=== PATIENT | male | born 1980 ===

== ENCOUNTER 2021-11-07 05:48 | Day surgery (SDC) | payer OTHER | END 2021-11-07 13:35 | disposition home or self-care (01) | LOC: CIR.AMB 05:48 | PROVIDERS: ATTEND Surgery | DX: K40.30 Unilateral inguinal hernia, with obstruction, without gangrene, not specified as recurrent (principal); Z88.2 Allergy status to sulfonamides; Z20.822 Contact with and (suspected) exposure to COVID-19 ==